=== PATIENT | male | born 1980 | race African-American/Black ===

== ENCOUNTER 2017-08-16 18:31 | Emergency (ER) | payer OTHER | END 2017-08-16 20:42 | disposition home or self-care (01) | LOC: D.ER 18:31 | DX: S16.1XXA Strain of muscle, fascia and tendon at neck level, initial encounter (principal); V43.52XA Car driver injured in collision with other type car in traffic accident, initial encounter; Y93.89 Activity, other specified; Y92.410 Unspecified street and highway as the place of occurrence of the external cause; F17.200 Nicotine dependence, unspecified, uncomplicated; M54.2 Cervicalgia ==

== ENCOUNTER 2021-01-24 12:31 | Emergency (ER) | payer BC ==
[~2021-01-24] VITALS: Ht 188 cm; Wt 140.9 kg
[2021-01-24 12:54] VITALS: BP 164/92; Ht 188 cm; Wt 140.9 kg
[2021-01-24] MEDS ORDERED: MEDROL DOSE PACK4 MG PO (13:51)
== END 2021-01-24 14:27 | disposition home or self-care (01) ==
LOC: D.ER 12:31
DX: M25.562 Pain in left knee (principal); S89.92XA Unspecified injury of left lower leg, initial encounter; W19.XXXA Unspecified fall, initial encounter; Y93.9 Activity, unspecified; Y92.9 Unspecified place or not applicable

== ENCOUNTER → 2021-02-12 10:05 | Outpatient (CLI) | payer BC ==
[2021-01-24 12:54] VITALS: BMI 39.9
[~2021-02-12 10:05] MED LIST: MEDROL DOSE PACK4 MG PO
== END | disposition home or self-care (01) ==
LOC: D.MRI 10:00
PROVIDERS: ATTEND Clinical Nurse Specialist Family Health
DX: M25.562 Pain in left knee (principal)